=== PATIENT | female | born 1995 | race Hispanic/Latino ===

== ENCOUNTER 2017-08-26 23:31 | Emergency (ER) | payer MEDICAID ==
[2017-08-26] MEDS ORDERED: HYDROCODONE/ACETAMINOPHEN 7.5/325 MG 15 ML UDCUP ONE (23:44)
== END 2017-08-27 00:16 | disposition home or self-care (01) ==
LOC: EDH 23:31
DX: S80.02XA Contusion of left knee, initial encounter (principal); X58.XXXA Exposure to other specified factors, initial encounter; Y93.89 Activity, other specified; Y92.89 Other specified places as the place of occurrence of the external cause; Y99.8 Other external cause status
CPT/HCPCS: 73562

== ENCOUNTER 2023-06-19 15:21 | Emergency (ER) | payer MEDICAID, OTHER ==
[~2023-06-19] VITALS: Ht 152.4 cm; Wt 83.9 kg
[2023-06-19 15:53] LABS: BASOPHILS # (AUTO) 0.03 K/uL (0.00-0.20); BASOPHILS % (AUTO) 0.3 % (0.0-5.0); EOSINOPHILS # (AUTO) 0.31 K/uL (0.00-0.70); EOSINOPHILS % (AUTO) 3.4 % (0.0-8.0); HEMATOCRIT 37.2 % (36-48); IMMATURE GRANULOCYTE ABSOLUTE 0.03 K/uL (0-1); LYMPHOCYTES # (AUTO) 2.6 K/uL (1.0-4.8); LYMPHOCYTES % (AUTO) 28.3 % (21.0-51.0); MEAN CORPUSCULAR HEMOGLOBIN 27.2 pg (27.0-33.0); MEAN CORPUSCULAR HGB CONC 31.2 g/dL (32.0-36.0); MEAN CORPUSCULAR VOLUME 87.3 fL (79-99); MONOCYTES # (AUTO) 0.5 K/uL (0.1-1.0); MONOCYTES % (AUTO) 5.6 % (3.0-13.0); NEUTROPHILS # (AUTO) 5.6 K/uL (1.8-7.7); NEUTROPHILS % (AUTO) 62.1 % (40.0-77.0); PLATELET COUNT (AUTO) 341 K/uL (130-400); RED BLOOD CELL COUNT(AUTO) 4.26 MIL/uL (4.00-5.50); RED CELL DISTRIBUTION WIDTH 13.9 % (11.0-15.5); WHITE BLOOD COUNT (AUTO) 9.1 K/uL (4.8-10.8)
[2023-06-19] MEDS: ALBUTEROL 0.083% 2.5 MG/3 ML INH IH ONE (15:57)
[2023-06-19 15:59] VITALS: PULSE 72; RESP 22
[2023-06-19 16:02] LABS: CREATININE 0.7 mg/dL (0.5-1.5); POTASSIUM 3.6 mmol/L (3.5-5.1)
[2023-06-19 16:06] LABS: ALBUMIN 3.6 g/dL (3.5-5.0); BILIRUBIN,TOTAL 0.4 mg/dL (0.2-1.0); TOTAL PROTEIN, SERUM 7.6 g/dL (6.0-8.3)
[2023-06-19] MEDS: 0.9%NACL 1000ML 1,000 ML IV ONE (16:07)
[2023-06-19] MEDS: DEXAMETHASONE SOD PHOSPHATE 4 MG/ML 1ML VIAL IV ONE (16:07)
[2023-06-19] MEDS: DiphenhydrAMINE HCL 50 MG/ML VIAL IV ONE (16:08)
[2023-06-19] MEDS: FAMOTIDINE 20MG VIAL IV ONE (16:08)
[2023-06-19] MEDS ORDERED: FAMO20TA8 PO (17:10)
[2023-06-19] MEDS ORDERED: PRED50TA2 PO (17:10)
[2023-06-19] MEDS ORDERED: DIPH25TA22 PO (17:10)
[2023-06-19 18:15] VITALS: BP 110/65; PULSE 80; RESP 18; O2SAT 100
== END 2023-06-19 19:51 | disposition home or self-care (01) ==
LOC: EDH 15:21
DX: T78.49XA Other allergy, initial encounter (principal); Z79.899 Other long term (current) drug therapy; Z98.890 Other specified postprocedural states; X58.XXXA Exposure to other specified factors, initial encounter
CPT/HCPCS: 99284; 96374; 71045; 96361; 96375; 80053; 85025; 36415; 94640; J1100; J1200; J3490